=== PATIENT | female | born 1970 | race Caucasian/White ===

== ENCOUNTER 2020-05-05 08:28 | Emergency (ER) | payer OTHER ==
[~2020-05-05] VITALS: Ht 157.5 cm; Wt 125.0 kg
[2020-05-05 09:27] VITALS: BP 178/88
== END 2020-05-05 09:35 | disposition home or self-care (01) | DRG 556 ==
LOC: ED 08:28
DX: M79.671 Pain in right foot (principal); M25.571 Pain in right ankle and joints of right foot; M25.562 Pain in left knee; W01.0XXA Fall on same level from slipping, tripping and stumbling without subsequent striking against object, initial encounter; Y92.009 Unspecified place in unspecified non-institutional (private) residence as the place of occurrence of the external cause